=== PATIENT | female | born 1980 | race Caucasian/White ===

== ENCOUNTER 2016-12-13 16:17 | Emergency (ER) | payer SELFPAY ==
[2016-12-13] MEDS ORDERED: Adacel (T-DAP) 0.5 ML VIAL ONE (16:33)
[2016-12-13] MEDS ORDERED: Ketorolac Tromethamine 60 MG/2 ML VIAL ONE (17:05)
== END 2016-12-13 17:33 | disposition home or self-care (01) ==
LOC: BURERS 16:17
DX: S80.871A Other superficial bite, right lower leg, initial encounter (principal); W54.0XXA Bitten by dog, initial encounter
CPT/HCPCS: 90471; 90715; 96372; J1885